=== PATIENT | female | born 1985 | race Two or more races ===

== ENCOUNTER 2016-10-25 10:20 | Emergency (ER) | payer OTHER ==
[2016-10-25 10:34] VITALS: TEMP 98.1; O2SAT 100
[2016-10-25] MEDS ORDERED: KETOROLAC 30 MG/1 ML SDV IVP ONE (10:58)
--- NOTE | 2016-10-25 11:02 | EDPHY ---
H & P Time Seen by Provider: 10/25/16 10:30 HPI/ROS: CHIEF COMPLAINT: Chest pain and dizziness HISTORY OF PRESENT ILLNESS: 31-year-old female states this morning, after lifting a 50 lb suitcase several times she developed discomfort across the left anterior chest. She has also noticed some dizziness and feeling like she is going to faint and some generalized weakness. No palpitations, no vertigo, no nausea or vomiting, no diaphoresis. Patient reports having some abdominal upset this morning, and has a prior history of reflux. Pain is worse with deep inspiration. No history of DVTs or PEs. No recent fevers or chills, no sputum production, no vomiting or diarrhea. No urinary complaints or headache or lightheadedness. REVIEW OF SYSTEMS: Aside from elements discussed in the HPI, a comprehensive 10-point review of systems was reviewed and is negative. PAST MEDICAL HISTORY: Polycystic ovary disease. On daily control pills. SOCIAL HISTORY: Nonsmoker. No family history of DVTs or PEs. VITAL SIGNS Reviewed by me. GENERAL: Pleasant, somewhat uncomfortable appearing. Rubbing the anterior portion of her chest. Describes the pain as being along the left sternal border. HEENT: Atraumatic. Eyes: No icterus, no injection. Mouth: moist mucous membranes. No erythema or lesions. Neck: supple with no adenopathy. LUNGS: Clear to auscultation bilaterally, no wheezes, rhonchi or rales. CHEST: Tenderness to palpation along the left sternal border. No crepitus. CARDIAC: Regular rate and rhythm, no rubs, murmurs or gallops. ABDOMEN: Soft, nontender, nondistended, bowel sounds normal. BACK: No CVA tenderness. EXTREMITIES: No trauma. No edema. Range of motion is normal throughout. NEURO: Alert and oriented, grossly nonfocal. SKIN: Warm and dry, no rash. PSYCHIATRIC: Normal mentation, no agitation. Smoking Status: Never smoked Constitutional: Initial Vital Signs Temperature (C) 36.7 C 10/25/16 10:30 Heart Rate 84 10/25/16 10:30 Respiratory Rate 18 10/25/16 10:30 Blood Pressure 127/89 H 10/25/16 10:30 O2 Sat (%) 100 10/25/16 10:30 O2 Delivery Mode Room Air Allergies/Adverse Reactions: No Known Allergies Allergy (Verified 09/22/15 09:41) Home Medications: Medication Instructions Recorded Metformin Sr 03/21/14 Nitrofurantoin Macrobid [Macrobid 100 mg PO BID #10 cap 09/22/15 100 mg (RX)] Medical Decision Making - Diagnostics EKG Interpretation: 12-LEAD EKG: Please see the full report in [facility]. My interpretation: Normal sinus rhythm, no signs of pericarditis, no ischemic changes Imaging Results: Imaging Impressions Chest X-Ray 10/25/16 10:40 Impression: No significant radiographic abnormality. Specifically, a source for chest pain is not identified. ED Course/Re-evaluation: 31-year-old female presenting with anterior chest discomfort which started this morning shortly after lifting a heavy suitcase. Chest x-ray does not demonstrate pneumomediastinum or pneumothorax. Patient received Toradol IV. D-dimer was negative. On re-evaluation the patient tells me she does also have a history of esophageal spasm in the past has been treated with nifedipine. She does complain of some mild epigastric discomfort as well. Patient may have had some gastritis this morning when she said she had an upset stomach with resultant reflux while straining to lift the suitcase and now esophageal spasm. A GI cocktail was administered. Patient was feeling improved at discharge. She was encouraged to use Tylenol or small doses of ibuprofen as needed for pain. She understands that the ibuprofen may worsen any gastritis or GERD. I do not believe she has pneumomediastinum, pneumothorax, acute cardiac event, pulmonary embolism, esophageal rupture, or pulmonary infectious process. Believe she is safe to be discharged. Differential Diagnosis: After history and physical examination, the differential for patient's symptom complex was considered, including but not limited to, myocardial ischemia, acute coronary syndrome, pulmonary embolus, chest wall pain, pleural inflammation, GI reflux disease, and pulmonary infectious causes. - Data Points Laboratory Results: 10/25/16 11:15 D-Dimer < 0.27 ug/mLFEU ug/mLFEU (0.00-0.50) Medications Given: Discontinued Medications Ketorolac Tromethamine (Toradol) 30 mg IVP EDNOW ONE Stop: 10/25/16 10:59 Last Admin: 10/25/16 11:12 Dose: 30 mg Departure - Departure Disposition: Home, Routine, Self-Care Clinical Impression: Shortness of breath, Possible esophageal spasm Chest pain Qualifiers: Chest pain type: chest pain on breathing Qualified Code(s): R07.1 - Chest pain on breathing Condition: Good Instructions: Esophageal Spasm (ED), Chest Wall Pain (ED) Additional Instructions: The cause of your chest discomfort is most likely related to a chest wall strain. This can be treated with Tylenol or ibuprofen. If you have developed reflux, and esophageal spasm, please use Maalox or Mylanta to help control those symptoms. Starting omeprazole on a regular basis will also help. If you continue to have significant discomfort, develop worsening pain, palpitations, lightheadedness, dizziness, fainting, severe shortness of breath, or other concerns, please return to the emergency department or seek care urgently. Referrals: DIONTE CAMERON [Primary Care Provider] - As per Instructions
--- NOTE | 2016-10-25 11:19 | CPEKG ---
Heart Rate: 61 RR Interval: 984 P-R Interval: 168 QRSD Interval: 90 QT Interval: 420 QTC Interval: 423 P [place]: 68 QRS [place]: 34 T Wave [place]: 37 EKG Severity - NORMAL ECG - EKG Impression: SINUS RHYTHM Electronically Signed By: Jake Real 26-Oct-2016 11:24:18
[2016-10-25] MEDS ORDERED: MAG HYDROX/AL HYDROX/SIMETH 30 ML UDCUP PO ONE (11:56)
[2016-10-25] MEDS ORDERED: LIDOCAINE 2% VISCOUS 15 ML UDCUP PO ONE (11:56)
[2016-10-25] MEDS ORDERED: HYOSCYAMINE SULFATE 0.125 MG TAB PO ONE (11:56)
[2016-10-25 12:43] VITALS: BP 124/78; PULSE 80; RESP 16
== END 2016-10-25 12:39 | disposition home or self-care (01) ==
LOC: CED 10:20
DX: R06.02 Shortness of breath (principal); R07.1 Chest pain on breathing
CPT/HCPCS: 71020-PO; 85378-PO; 96374; J1885